=== PATIENT | female | born 1990 | race Two or more races ===

== ENCOUNTER 2023-02-19 13:33 | Emergency (ER) | payer OTHER ==
[~2023-02-19] VITALS: Ht 165.1 cm; Wt 79.4 kg
[2023-02-19 14:58] LABS: CREATININE SERUM 0.69 mg/dL (0.55-1.02); GFR 97.39; POTASSIUM 3.42 mEq/L (3.5-5.1)
[2023-02-19 15:01] LABS: HEMOGLOBIN 12.4 g/dL (12.0-15.00); MEAN CELL VOLUME 82.5 fL (80.00-100.00); MEAN CORPUSCULAR HEMOGLOBIN 27.7 pg (27.00-32.0); MEAN CORPUSCULAR HGB CONC 33.6 g/dl (32.0-36.0); PLATELET COUNT 211 K/uL (150-450); RED BLOOD COUNT 4.48 M/uL (4.00-6.00); RED CELL DISTRIBUTION WIDTH 13.4 % (11.5-14.5)
== END 2023-02-19 15:36 | disposition home or self-care (01) ==
LOC: ER 13:34
PROVIDERS: General Practice
DX: O20.0 Threatened abortion (principal)